=== PATIENT | male | born 1975 | race Caucasian/White ===

== ENCOUNTER → 2023-09-09 13:55 | Outpatient (POV) | payer MEDICAID, SELFPAY ==
[2023-09-09 14:10] VITALS: BP 130/78; PULSE 78; RESP 20; O2SAT 95; BMI 21.7
--- NOTE | 2023-09-09 14:37 | EXP.PAIN.OV ---
HPI Data of Consult Patient: known to practice within the last 3 years Consult date: 09/09/23 Requesting Physician: Kiki Ervin APRN Primary Care Provider: Adiel Wood Consult Narrative Reason for consult: Chronic low back pain, leg pain History of present illness: Mr. Phan is a 48 year old male patient who is reestablishing care. 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 Patient does state he has pain today a 7 out of 10. Patient denies any new injury or trauma. He states this is chronic and unrelated to any specific trauma or injury. He states this has been going on for years and describes it as a sharp shooting pain with occasional aching sensations and numbness and tingling. Patient does state that prior to having his pump placed in 2015 he has done conservative treatment including Tylenol and ibuprofen along with heat and ice and topicals with minimal relief. Patient had had multiple injections however none of these provided much improvement. Patient states that he did have his pump placed and has had much better relief. He does state that he still has daily aches and pains however he is content with his current dosage and feels like it does make him overall more functional on a day-to-day basis. Patient does have a flow [place] pump with Dilaudid 20 mg/mL and a daily dose of 3.432 mg/day. He denies any side effects from this medication. He does currently have his pump on his right lateral back area and states he will occasionally have fluid buildup around the device however it does not cause any worsening pain. Patient does also state that he does have chronic hip pain along the right side and does go to the chiropractor for this and even has cortisone injections for his bursitis. His Bryn has been reviewed and is appropriate. CC: Kiki Ervin APRN [facility] Disclaimer: The information contained in this section may have been updated after the patient was seen, as this information can be updated by other users. Medical History (Updated 09/09/23 @ 14:41 by Kiki Ervin APRN) Degenerative disc disease Depression Presence of intrathecal pump Family History (Updated 09/09/23 @ 14:34 by Kailee Riggs RN) Other No significant family history Social History (Updated 09/09/23 @ 14:34 by Kailee Riggs RN) Smoking Status: Current every day smoker alcohol intake: never current occupational status: other Travel in the last 8 weeks: None Review of Systems Review of Systems Review of systems:: pertinent systems reviewed and negative unless documented below Review of systems (narrative): Review of Systems: General: No recent weight changes, no fever, no sleep disturbances Respiratory: No cough, no shortness of air, no recurring pulmonary infections Cardiovascular/peripheral vascular: No chest pain, no palpitations, no edema, no shortness of breath Gastrointestinal: No new onset incontinence, normal bowel movements reported Genitourinary: No new onset incontinence Musculoskeletal: Low back pain, bilateral leg pain Psychiatric: [Normal mood/affect] Neurological: [Denies weakness in extremities], [denies balance issues] Meds Home Medications and Allergies New Prescriptions to Start Prescriptions: Objective Narrative: Physical Exam: General: Alert and oriented x3, no acute distress, pleasant and cooperative Lungs: Respirations even and unlabored, symmetrical chest expansion Eyes: PERRL Musculoskeletal: Flexion and extension of lumbar [spine] somewhat guarded secondary to pain, [antalgic gait noted] Neurological: Speech clear, no gross sensory deficit Skin: Area overall right lateral pump does not have seroma present, no pain with palpation Assessment and Plan *Assessment and plan (1) Chronic pain syndrome: Status: Acute Category: Medical Code(s): G89.4 - Chronic pain syndrome (2) Low back pain: Status: Acute Qualifiers: Chronicity: chronic Back pain laterality: bilateral Sciatica presence: without sciatica Qualified Code(s): M54.50 - Low back pain, unspecified; G89.29 - Other chronic pain Category: Medical Code(s): M54.50 - Low back pain, unspecified (3) Lumbar radiculopathy: Status: Acute Category: Medical Code(s): M54.16 - Radiculopathy, lumbar region Plan Patient continues to do well with his intrathecal pump. I have discussed with the patient that in future it may be something that we need to replace due to the age of the system. I have counseled the patient that we will follow-up with him regarding this at future visits. Patient will return to clinic in 6 months for reevaluation of symptoms and plan of care. Patient is not AIS at home refill client. Patient has been instructed to contact the clinic with any concerns before the next appointment. Dr. Angel has reviewed this note and agrees with this plan of care. This note was dictated using voice recognition software and make contain errors or omissions. -- It Is medically necessary for this patient to continue to have their intrathecal pump refilled at regular intervals. This patient had an intrathecal pain pump implanted after meeting criteria of chronic intractable pain for greater than 3 months and failing conservative treatments. Patient has committed and been compliant to the treatment plan and all planned follow up care. Since implantation of the intrathecal pain pump, the patient has had decreased pain and been more functional. Oral medications have been reduced including intake of oral opioids. Patient continues to do well with intrathecal therapy with decrease in pain symptoms and increase in functional status. Stopping intrathecal medications can lead to life threatening withdrawal, seizures, cardiac arrest, severe pain, and possible . Pumps that are not refilled at regular intervals can be damages and cause and need for replacement. We continually titrate dose and concentration to optimize pain relief and function. We are limited in concentration for certain drugs to safely deliver medications through the pump and stay within the recommendations from the Polyanalgesic Consensus Committee Guidelines. Depending on dose and concentration these pumps may need to be refilled sooner than 3 months as we titrate.
== END ==
LOC: SC.PAIN 13:58
PROVIDERS: PCP Physician Assistant; Visit Provider Nurse Practitioner Family
DX: G89.4 Chronic pain syndrome (principal); M54.50 Low back pain, unspecified; M54.16 Radiculopathy, lumbar region; Z97.8 Presence of other specified devices
CPT/HCPCS: 99202; G0463

== ENCOUNTER 2024-06-12 12:13 | Day surgery (SDC) | payer MEDICAID, SELFPAY ==
--- OUTSIDE RECORDS SUMMARY | 2024-06-12 12:17 | XMS_ITS | Clinical Summary ---
Author Organization Healthcare Address [address] [place] [address] Care Team Providers Care Picker/Puller Name Role Phone Dieter Kennedy MD Primary Care Provider [phone] Family History Medical History Relation Name Comments Hypertension Mother Relation Name Status Comments Mother Social History Tobacco Use Types Packs/Day Years Used Date Smoking Tobacco: Every Day Alcohol Use Standard Drinks/Week Comments No 0 (1 standard drink = 0.6 oz pur e alcohol) Sex and Gender Information Value Date Recorded Sex Assigned at Not on file Legal Sex Male 8:58 PM EDT Gender Identity Not on file Sexual Orientation Not on file Last Filed Vital Signs Vital Sign Reading Time Taken Comments Blood Pressure - - Pulse - - Temperature - - Respiratory Rate - - Oxygen Saturation - - Inhaled Oxygen Concentration - - Weight 88.6 kg (195 lb 4.2 oz) 04/23/2016 10:23 AM EDT Height 182.9 cm (6') 04/23/2016 10:23 AM EDT Body Mass Index 26.48 04/23/2016 10:23 AM EDT Plan of Treatment Not on file Care Teams Picker/Puller Relationship Specialty Start Date End Date Dieter Kennedy MD [address] [place] [address] PCP - General 12/02/20
--- OUTSIDE RECORDS SUMMARY | 2024-06-12 12:17 | XMS_ITS | Continuity of Care Document ---
Author Organization [place] - [place] [facility] Address [address] [place] [id number] Care Team Providers Care Paring Machine Operator Name Role Phone MARITZA NINO Primary Care Provider Assessment No assessment recorded. Plan of Treatment Reminders Order Date Submit Date Provider Last Modified By Organization Details Last Modified Time Details Appointments None recorded. Lab influenza virus A + B + SARS-CoV-2 (COVID19) Ag panel, rapid IA, upper respiratory specimen 2023 024 [email or web address] 40 [facility], [address] [place] [address], [id number], 4 16:44:42 Referral None recorded. Procedures None recorded. Surgeries None recorded. Imaging None recorded. Medication Orders prednisone 20 mg tablet 2023 024 [email or web address] [facility], [address] [place], [address], 4 15:30:08 ceftriaxone 1 gram solution for injection 2023 024 [email or web address] Not available 4 08:20:17 dexamethaso ne sodium phosphate 4 mg/mL injection solution 2023 024 [email or web address] Not available 4 08:20:18 Augmentin 500 mg-125 mg tablet 2023 024 [email or web address] 40 [facility], [address] [place], [address], 4 07:41:54 Patient TargetsNo targets recorded. Patient InstructionsNo instructions recorded. Reason for Referral None Reported. Results Created Date Observation Date Name Description Value Unit Range Abnormal Flag Note LastModifiedBy Organization Detail LastModifiedTime 04/01/20 24 04/01/2024 influ andrews virus A + B + SARS- CoV-2 (COVI D19) Ag panel , rapid IA, upper respi rator y speci men FLU A negati ve Not Available [address], [address], 04/01/2024 14:13:06 04/01/20 24 04/01/2024 influ andrews virus A + B + SARS- CoV-2 (COVI D19) Ag panel , rapid IA, upper respi rator y speci men FLU B negati ve Not Available [address], [address], 04/01/2024 14:13:06 04/01/20 24 04/01/2024 influ andrews virus A + B + SARS- CoV-2 (COVI D19) Ag panel , rapid IA, upper respi rator y speci men SARS COV + SARS OV 2 negati ve Not Available [address], [address], 04/01/2024 14:13:06 Result Notes None recorded. Problems Name Problem SNOMED Code Status Onset Date Resolution Date Notes Provider Name and Address Organization Details Recorded Time Cough 05933960 Active 2022 MELVA Pina - ELSY [facility] & Shakila 3 15:35:34 Acute maxillary sinusitis 43032703 Active 2022 SHERRI BANSAL [address] [place] [address],[address], [phone] [facility] MELVA - MOUNANT - [place] & [place] 3 16:46:41 Acute upper respiratory infection 31134617 Active 2022 SHERRI BANSAL [facility] [employer] [facility],[address] [place], [address], [place] - [place] - [place] & [place] 3 16:46:48 Mixed anxiety and depressive disorder 465282130 Active 2023 SHERRI BANSAL [facility] [employer] [facility],[address], [place], [address], [place] [facility] - [place] & [place] 4 15:54:11 Fatigue 74988436 Active 2023 SHERRI BANSAL [facility] [employer] [facility],[address], [place], [address], [place] - [facility] - [place] & [place] 4 15:40:32 Hypokalemia 86923242 Active 2023 SHERRI BANSAL [facility] [employer] [facility], [place], [address], [place] - [place] - [place] & [place] 4 07:37:22 Vitamin D deficiency 32813389 Active 2023 SHERRI BANSAL [facility] [employer] [facility],[address], [place], [address], [place] - [facility] - [place] & [place] 4 10:55:20 Colorectal cancer detected by DNA-based stool screening 951745807 Active 2023 SHERRI BANSAL [facility] [employer] [facility],[address], [place], [address], [place] - [facility] - [place] & [place] 4 15:14:03 Congestion of nasal sinus 52002712 Active 2023 Gali ivey, [place] - [facility] & [place] 4 14:13:23 Cervical lymphadenopath y 932412739 Active 2023 SHERRI BANSAL [facility] [employer] [facility], [place], [address], [place] [facility] - [place] & [place] 4 14:49:18 Problem Notes None recorded. Procedures Surgical History Date Name Laterality Status Provider Name and Address Organization Details Recorded Time Eye Surgery completed Anamaria Hemal FRYE [facility] & [place] 07/30/2022 16:36:44 Appendectomy completed [facility] MELVA [facility] & [place] 07/30/2022 16:36:51 Imaging Results None recorded. Procedure Notes None recorded. Medical Equipment None Reported. Allergies No known drug allergies Medications Name Sig Start Date Stop Date Status Note LastModified by Organization Details LastModified Time doxycycline hyclate 100 mg capsule TAKE 1 CAPSULE BY MOUTH 2 TIMES DAILY 08/28 completed Not Available Not Available Not Available Paxil 20 mg tablet Take 1 tablet every day by oral route. 10/08 completed Not Available Not Available Not Available prednisone 20 mg tablet TAKE 3 TABLETS BY MOUTH DAILY FOR 2 DAYS,2 TABLETS FOR 2 DAYS THEN 1 TABLET FOR 2 DAYS active Not Available Not Available No t Available potassium chloride ER 10 mEq tablet,exte nded release TAKE 1 TABLET BY MOUTH DAILY. active Not Available Not Available No t Available ceftriaxone 1 gram solution for injection Take 1 g by injection route for 1 day. 2023 active Not Available Not Available Not Avai lable ergocalcife rol (vitamin D2) 1,250 mcg (50,000 unit) capsule TAKE 1 CAPSULE BY MOUTH TWICE WEEKLY active Not Available Not Available No t Available dexamethaso ne sodium phosphate 4 mg/mL injection solution Inject 2 mL by intramusc ular route for 1 day. 2023 active Not Available Not Available Not Avai lable paroxetine 40 mg tablet TAKE 1 TABLET BY MOUTH DAILY. active Not Available Not Available No t Available Augmentin 500 mg-125 mg tablet Take 1 tablet every 12 hours by oral route. 2023 active Not Available Not Available Not Avai lable Sutab 1.479-0.188 -0.225 gram tablet Take as directed in Dr Garza's office 2023 active Not Available Not Available Not Avai lable Paxlovid 300 mg (150 mg x 2)-100 mg tablets in a dose pack TAKE 3 TABLETS BY MOUTH EACH MORNING AND EVENING FOR 5 DAYS. FOLLOW PACKET INSTRUCTI ONS START 03/19/2207/30 completed Not Available Not Available Not Available Vitals Date Recorded Body height Body mass index (BMI) Body weight Body temperature Oxygen saturation Oxygen saturation in Arterial blood by Pulse oximetry Heart rate Systolic blood pressure Diastolic blood pressure Provider Name and Address Organization Details Last Updated DateTime 4 182.88 cm 23.7 kg/m2 54907.6 6 g 98.6 [degF] 95 % 95 % 102 /min 104 mm[Hg] 60 mm[Hg] Gali Penaloza [facility] & [place] 14:11:38 Social History Question Answer Notes LastModified by Organizat ion Details LastModified Time Tobacco Smoking Status Current Every Day Smoker Anamaria [place], [place] Randy [facility] & [place] 07/30/2022 16:36:34 Do You Have An Advance Directive? No Information not available 08/28/2023 What Is Your Level Of Alcohol Consumption? None Information not available 08/28/2023 Are You Blind Or Do You Have Difficulty Seeing? Yes Information not available 08/28/2023 What Is Your Level Of Caffeine Consumption? Moderate [email or web address] Information not available 09/11/2023 What Was The Date Of Your Most Recent Tobacco Screening? 08/28/2023 Information not available 08/28/2023 Are You Passively Exposed To Smoke? Yes Information no t available 08/28/2023 Do You Or Have You Ever Used Smokeless Tobacco? Never Used Smokeless Tobacco Information not available 08/28/2023 How Much Tobacco Do You Smoke? 1 PPD [email or web address] Information not available 07/30/2022 Do You Feel Stressed (tense, Restless, Nervous, Or Anxious, Or Unable To Sleep At Night)? [id number] Information not available 08/28/2023 Do You Use Any Illicit Or Recreational Drugs? No Information not available 08/28/2023 How Many Years Have You Smoked Tobacco? 30 Information not available 08/28/2023 Sex: Unknown Functional Status Question Answer Note LastModified by Organization D etails LastModified Time What is your exercise level? Moderate Information not available 08/28/2023 Mental Status None recorded. Family History Relationship Description Onset Age of this Age Resolved Age Notes LastModified by Organization Details LastModified Time Mother Heart disease Not available 2023 15:24:43 Mother Dementia [email or web address] Not available 04/01/2024 13:53:00 Sister Malignant tumor of colon [email or web address] Not available 2023 13:53:00 Medical History Condition Response Arthritis Y Back Problems Y Acne Y Past Encounters Encounter ID Performer Location Encounter Start Date Encounter Closed Date Diagnosis/Indication Diagnosis SNOMED-CT Code Diagnosis ICD10 Code [id number] SHERRI BANSAL [facility] [address] [address] [address] 04/01/2024 13:51:14 04/01/2024 15:25:24 Congestion of nasal sinus 68408906 R09.81 Exposure t o SARS-CoV-2 694042107 Z20.822 Exposure t o Influenzavirus 041070021 Z20.828 Acute uppe r respiratory infection 78478882 J06.9 Cervical lymphadenopathy 802767138 R59.0 Health Concerns Section Related Observation LastModified by Organization Detai ls LastModified Time None Recorded Concern Status LastModified by Organization Details LastModified Time None Recorded Payers Encounter Date Sequence Insurance Name Policy Number Policy Arroyo Covered Member ID Arroyo Member ID Guarantor Name 04/01/2024 1 [employer] BY [employer] (MEDICAID REPLACEMENT - HMO) [id number] Que Phan [id number] Que Phan Notes Date Note Type Note Provider Name and Address Organization Details Recorded Time 04/01/2024 text/html patient presents to the office today for evaluation. She is experiencing upper respiratory congestion sore throat. Postnasal drainage. Headache. Low-grade fevers. Body aches. he has had exposure to both COVID and the flu. In addition to the symptoms he is also having face pain and pressure. He has a palpable lymph node in his cervical spine. SHERRI BANSAL [address], [place], [address], [place] - [facility] - [place] & [place] 04/02/2024 07:41:56
--- OUTSIDE RECORDS SUMMARY | 2024-06-12 12:17 | XMS_ITS | Clinical Summary ---
Author Organization [facility] Address [address] [place] [id number] Care Team Providers Care Inspector Process Name Role Phone Unavailable Primary Care Provider Unavailabl e Social History Tobacco Use Types Packs/Day Years Used Date Smoking Tobacco: Never Assessed Abuse Screen Answer Date Recorded Unsafe at Home or Work/School Not on file Feels Threatened by Someone? Not on file 05/2023 Does Anyone Keep You from Co ntacting Others or Doint Things Outside the Home? Not on file 05/01/2023 Physical Sign of Abuse Present Not on file 1 Housing Stability Answer Date Recorded Current Living Arrangements Not on file 04/21 Potentially Unsafe Housing Conditions Not on robyn e 05/01/2023 Family and Community Support Answer Jann e Recorded Help with Day-to-Day Activities Not on file 05/01/2023 Lonely or Isolated Not on file 05/01/2023 Employment Answer Date Recorded Do you want help finding or keeping work or a mary b? Not on file 05/01/2023 Disabilities Answer Date Recorded Concentrating, Remembering, or Making Decisions Difficulty Not on file 05/01/2023 Doing Errands Independently Difficulty Not on fi le 05/01/2023 Education Answer Date Recorded Help with school or training? Not on file Preferred Language Not on file 05/01/2023 Sex and Gender Information Value Date Recorded Sex Assigned at Not on file Legal Sex Male 12:17 PM EDT Gender Identity Not on file Sexual Orientation Not on file Last Filed Vital Signs Vital Sign Reading Time Taken Comments Blood Pressure 122/80 03/02/2014 1:31 PM EDT Pulse 80 03/02/2014 1:31 PM EDT Temperature - - Respiratory Rate 16 03/02/2014 1:31 PM EDT Oxygen Saturation - - Inhaled Oxygen Concentration - - Weight 80.7 kg (178 lb) 03/02/2014 1:31 PM EDT Height 182.9 cm (6') 03/02/2014 1:31 PM EDT Body Mass Index 24.14 03/02/2014 1:31 PM EDT Plan of Treatment Health Maintenance Due Date Last Done Comments ANNUAL PHYSICAL 1977 COLOGUARD 1977 COLON CANCER SCREENING 5 YEA R SIGMOIDOSCOPY 1977 COLONOSCOPY [address] S[address] COLONOGRAPHY 1977 FECAL OCCULT BLOOD TEST 1977 FIT Testing (1 year) 1977 HEPATITIS C SCREENING 1977 TDAP/TD VACCINES (1 - Tdap) 01/28/1996 INFLUENZA VACCINE 02/20/2024 COVID-19 Vaccine (2023-2 5 season) 2024 Pneumococcal Vaccine 0-64 Aged Out No longer eligible based on patient's age to complete this topic
--- OUTSIDE RECORDS SUMMARY | 2024-06-12 12:17 | XMS_ITS | Data Portability ---
Author Organization [place] - [facility] Address [address] [place] [address] Care Team Providers Care Machine Loader Name Role Phone MARITZA WOOD Primary Care Provider Assessment No assessment recorded. Plan of Treatment Reminders Order Date Submit Date Provider Last Modified By Organization Details Last Modified Time Details Appointments None recorded. Lab influenza virus A + B + SARS-CoV-2 (COVID19) Ag panel, rapid IA, upper respiratory specimen 2022 023 [email or web address] 40 [facility], [address] [place] [address], [phone], 3 16:47:24 noninvasive colorectal cancer DNA + occult blood screening, QL, stool 2023 024 [email or web address] [facility] (Cologuard Orders Only), [address], [address], [place], [address], 4 06:42:53 CMP, serum or plasma 2023 024 [facility] ([facility]), [address] [place], [address], 4 18:19:22 CBC w/ auto diff 2023 024 [facility] ([facility]), [address] [place], [address], 4 18:01:00 vitamin D, 25-hydroxy, total, serum [address] ([facility]), [address] , [place], [address], 4 06:42:53 TSH, serum or plasma [address] ([facility]), [address] [place] [address] , [place], [address], 4 06:42:53 influenza virus A + B + SARS-CoV-2 (COVID19) Ag panel, rapid IA, upper respiratory specimen 2023 024 [email or web address] 40 [facility], [address] [place] [address], [phone], 4 16:44:42 Referral gastroenter ologist referral - referred to Dr. Garza. Patient was given pre appointment paperwork to complete an mail in 2023 024 [facility] Maritza Garza MD, [address] [place] [address], [address], 4 08:19:51 Procedures None recorded. Surgeries None recorded. Imaging None recorded. Medication Orders prednisone 20 mg tablet 2022 023 [facility], [address] [place], [address], 3 16:59:37 dexamethaso ne sodium phosphate 4 mg/mL injection solution 2022 023 [email or web address], [address] [place], [address], 4 15:23:24 ceftriaxone 1 gram solution for injection 2022 023 [email or web address], [address] [place], [address], 4 15:23:24 doxycycline hyclate 100 mg capsule 2022 023 [facility], [address] [place], [address], 3 03:41:34 Paxil 20 mg tablet 2023 024 [email or web address] [facility], [address] [place], [address], 4 14:02:01 Paxil 40 mg tablet 2023 024 [email or web address] 40 [facility], [address] [place], [address], 4 07:50:25 prednisone 20 mg tablet 2023 024 [facility], [address] [place], [address], 4 15:30:08 ceftriaxone 1 gram solution for injection 2023 024 [email or web address] Not available 4 08:20:17 dexamethaso ne sodium phosphate 4 mg/mL injection solution 2023 024 [email or web address] Not available 4 08:20:18 Augmentin 500 mg-125 mg tablet 2023 024 [email or web address] 40 [facility], [address] [place], [address], 4 07:41:54 Patient TargetsNo targets recorded. Patient Instructions Encounter Date Encounter Id Patient Instructions Last Modified By Organization Details Last Modified Time 08/28/2023 [id number] discussed his anxiety and depression. We discussed triggering mechanisms. In addition to medications we also discussed possible counseling. He states he has a lot of things going on in his life right now and does not wish to do that. Total time [id number] was 20 minutes. [email or web address] Not available 09/11/2023 15:38:03 10/09/2023 [id number] discussing regarding Cologuard testing. We will refer him to Gastroenterology. He needs a colonoscopy. Continue with his Paxil. 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 Garza. Patient was given pre appointment paperwork to complete an mail in Referring Physician: Maritza Wood, [facility], Encounter Date: 10/09/2023 Results Created Date Observation Date Name Description Value Unit Range Abnormal Flag Note LastModifiedBy Organization Detail LastModifiedTime 07/30/19 23 07/30/2022 influ andrews virus A + B + SARS- CoV-2 (COVI D19) Ag panel , rapid IA, upper respi rator y speci men FLU A negati ve Not Available [address], [address], 07/30/2022 15:35:37 07/30/19 23 07/30/2022 influ andrews virus A + B + SARS- CoV-2 (COVI D19) Ag panel , rapid IA, upper respi rator y speci men FLU B negati ve Not Available [address], [address], 07/30/2022 15:35:37 07/30/19 23 07/30/2022 influ andrews virus A + B + SARS- CoV-2 (COVI D19) Ag panel , rapid IA, upper respi rator y speci men SARS COV + SARS OV 2 negati ve Not Available [address], [address], 07/30/2022 15:35:37 09/11/19 24 09/11/2023 CBC WITH AUTO DIFF WBC 6.1 10 4.5-11 .5 Not Available [facility] (Lab) [address] [place], [address], 09/11/2023 18:01:00 09/11/19 24 09/11/2023 CBC WITH AUTO DIFF RBC 5.37 10 4.60-6 .00 Not Available [facility] (Lab) [address] [place] [place], [address], 09/11/2023 18:01:00 09/11/19 24 09/11/2023 CBC WITH AUTO DIFF hemoglobin 15.3 g/dL 14.0-1 8.0 Not Available [facility] (Lab) [address] [place], [address], 09/11/2023 18:01:00 09/11/19 24 09/11/2023 CBC WITH AUTO DIFF hematocrit 46.0 % 40.0-5 4.0 Not Available [facility] (Lab) [address] [place], [address], 09/11/2023 18:01:00 09/11/19 24 09/11/2023 CBC WITH AUTO DIFF MCV 85.7 fL 80-100 Not Available [facility] (Lab) [address] [place], [address], 09/11/2023 18:01:00 09/11/19 24 09/11/2023 CBC WITH AUTO DIFF MCH 28.5 pg 26-32 Not Available [facility] (Lab) [address] [place], [address], 09/11/2023 18:01:00 09/11/19 24 09/11/2023 CBC WITH AUTO DIFF MCHC 33.3 g/dL 32-36 Not Available [facility] (Lab) [address] [place] [place], [address], 09/11/2023 18:01:00 09/11/19 24 09/11/2023 CBC WITH AUTO DIFF RDW 11.9 % 11.5-1 4.5 Not Available [facility] (Lab) [address] [place] [place], [address], 09/11/2023 18:01:00 09/11/19 24 09/11/2023 CBC WITH AUTO DIFF platelet count 232 10 150-45 0 Not Available [facility] (Lab) [address] [place], [address], 09/11/2023 18:01:00 09/11/19 24 09/11/2023 CBC WITH AUTO DIFF mean platelet volume 10.8 fL 6.8-10 .2 high Not Available [facility] (Lab) [address] [place], [address], 09/11/2023 18:01:00 09/11/19 24 09/11/2023 CBC WITH AUTO DIFF manual differential NOT INDICA CIERRA Not Available [facility] (Lab) [address] [place] [place], [address], 09/11/2023 18:01:00 09/11/19 24 09/11/2023 CBC WITH AUTO DIFF ne% 53.4 % 50-70 Not Available [facility] (Lab) [address] [place], [address], 09/11/2023 18:01:00 09/11/19 24 09/11/2023 CBC WITH AUTO DIFF lymphs 32.2 % 18-42 Not Available [facility] (Lab) [address] [place] [place], [address], 09/11/2023 18:01:00 09/11/19 24 09/11/2023 CBC WITH AUTO DIFF MO% 7.5 % 2-11 Not Available [facility] (Lab) [address] [place] [place], [address], 09/11/2023 18:01:00 09/11/19 24 09/11/2023 CBC WITH AUTO DIFF eo% 5.4 % 1-3 high Not Available [facility] (Lab) [address] [place] [place], [address], 09/11/2023 18:01:00 09/11/19 24 09/11/2023 CBC WITH AUTO DIFF ba% 1.5 % 0.0-2. 0 Not Available [facility] (Lab) [address] [place], [address], 09/11/2023 18:01:00 09/11/19 24 09/11/2023 CBC WITH AUTO DIFF neutrophils (absolute) 3.3 K/uL 2.0-6. 9 Not Available [facility] (Lab) [address] [place] [place], [address], 09/11/2023 18:01:00 09/11/19 24 09/11/2023 CBC WITH AUTO DIFF lymphocytes (absolute) 2.0 K/uL 0.6-3. 4 Not Available [facility] (Lab) [address] [facility] [place], [address], 09/11/2023 18:01:00 09/11/19 24 09/11/2023 CBC WITH AUTO DIFF monocytes (absolute) 0.5 K/uL 0.0-0. 9 Not Available [facility] (Lab) [address] [facility] [place], [address], 09/11/2023 18:01:00 09/11/19 24 09/11/2023 CBC WITH AUTO DIFF eosinophils (absolute) 0.3 K/uL 0.0-0. 7 Not Available [facility] (Lab) [address] [place] [place], [address], 09/11/2023 18:01:00 09/11/19 24 09/11/2023 CBC WITH AUTO DIFF basophils (absolute) 0.1 K/uL 0.0-0. 2 Not Available [facility] (Lab) [address] [place] [place], [address], 09/11/2023 18:01:00 09/11/19 24 09/11/2023 COMPR EHENS BALJINDER METAB OLIC PANEL sodium 139 mmol/ L 136-14 5 Not Available [facility] (Lab) [address] [facility] [place], [address], 09/11/2023 18:19:22 09/11/19 24 09/11/2023 COMPR EHENS BALJINDER METAB OLIC PANEL potassium 3.4 mmol/ L 3.5-5. 1 low Not Available [facility] (Lab) [address] [facility] [place], [address], 09/11/2023 18:19:22 09/11/19 24 09/11/2023 COMPR EHENS BALJINDER METAB OLIC PANEL chloride 101 mmol/ L 98.0-1 07.0 Not Available [facility] (Lab) [address] [place] [place], [address], 09/11/2023 18:19:22 09/11/19 24 09/11/2023 COMPR EHENS BALJINDER METAB OLIC PANEL total CO2 30 mmol/ L 21-32 Not Available [facility] (Lab) [address] [facility] [place], [address], 09/11/2023 18:19:22 09/11/19 24 09/11/2023 COMPR EHENS BALJINDER METAB OLIC PANEL anion gap 11.4 mmol/ L 5.0-15 .0 Not Available [facility] (Lab) [address] [facility] [place], [address], 09/11/2023 18:19:22 09/11/19 24 09/11/2023 COMPR EHENS BALJINDER METAB OLIC PANEL glucose 107 mg/dL 70-120 Not Available [facility] (Lab) [address] [facility] [place], [address], 09/11/2023 18:19:22 09/11/19 24 09/11/2023 COMPR EHENS BALJINDER METAB OLIC PANEL BUN 8 mg/dL 7-18 Not Available [facility] (Lab) [address] [facility] [place], [address], 09/11/2023 18:19:22 09/11/19 24 09/11/2023 COMPR EHENS BALJINDER METAB OLIC PANEL creatinine 0.9 mg/dL 0.8-1. 3 Not Available [facility] (Lab) [address] [place] [place], [address], 09/11/2023 18:19:22 09/11/19 24 09/11/2023 COMPR EHENS BALJINDER METAB OLIC PANEL BUN/creatini ne ratio 8.9 ratio 9-21 low Not Available [facility] (Lab) [address] [facility] [place], [address], 09/11/2023 18:19:22 09/11/19 24 09/11/2023 COMPR EHENS BALJINDER METAB OLIC PANEL estimated glom filtration rate >60 mL/mi n 60.0- Not Available [facility] (Lab) [address] [facility] [place], [address], 09/11/2023 18:19:22 09/11/19 24 09/11/2023 COMPR EHENS BALJINDER METAB OLIC PANEL calcium 9.0 mg/dL 8.6-9. 8 Not Available [facility] (Lab) [address] [place] [place], [address], 09/11/2023 18:19:22 09/11/19 24 09/11/2023 COMPR EHENS BALJINDER METAB OLIC PANEL bilirubin, total 0.3 mg/dL 0.2-1. 0 USE OF THIS ASSAY IS NOT RECOM IDRIS D FOR PATIE NTS UNDER GOING TREAT MENT WITH ELTRO MBOPA G DUE TO THE POTEN TIAL FOR FALSE LY ELEVA CIERRA RESUL TS. Not Available [facility] (Lab) [address] [place], [address], 09/11/2023 18:19:22 09/11/19 24 09/11/2023 COMPR EHENS BALJINDER METAB OLIC PANEL AST (SGOT) 14 IU/L 15-37 low Not Available [facility] (Lab) [address] [facility] [place], [address], 09/11/2023 18:19:22 09/11/19 24 09/11/2023 COMPR EHENS BALJINDER METAB OLIC PANEL ALT (SGPT) 13 IU/L 12-78 Not Available [facility] (Lab) [address] [place] [place], [address], 09/11/2023 18:19:22 09/11/19 24 09/11/2023 COMPR EHENS BALJINDER METAB OLIC PANEL alk phos 101 IU/L 46-116 Not Available [facility] (Lab) [address] [facility] [place], [address], 09/11/2023 18:19:22 09/11/19 24 09/11/2023 COMPR EHENS BALJINDER METAB OLIC PANEL total protein 6.9 g/dL 6.4-8. 2 Not Available [facility] (Lab) [address] [place] [place], [address], 09/11/2023 18:19:22 09/11/19 24 09/11/2023 COMPR EHENS BALJINDER METAB OLIC PANEL albumin 3.6 g/dL 3.4-5. 0 Not Available [facility] (Lab) [address] [place] [place], [address], 09/11/2023 18:19:22 09/11/19 24 09/11/2023 COMPR EHENS BALJINDER METAB OLIC PANEL globulin 3.3 g/dL 1.3-3. 5 Not Available [facility] (Lab) [address] [place], [address], 09/11/2023 18:19:22 09/11/19 24 09/11/2023 COMPR EHENS BALJINDER METAB OLIC PANEL alb/glob ratio 1.1 ratio 1.0-3. 9 Not Available [facility] (Lab) [address] [place] [place], [address], 09/11/2023 18:19:22 09/11/19 24 09/11/2023 COMPR EHENS BALJINDER METAB OLIC PANEL osmolality, calculated 276 mOsm/ kg 272-29 5 Not Available [facility] (Lab) [address] [place] [address] [place], [address], 09/11/2023 18:19:22 09/11/19 24 09/11/2023 TSH TSH 3.57 uIU/m L 0.3600 -3.740 0 Not Available [facility] (Lab) [address] [place] [address] [place], [address], 09/11/2023 18:20:25 09/11/19 24 09/13/2023 VITAM IN D, 25-HY DROXY vitamin D, 25-hydroxy 18.7 NG/mL 30.0-1 00.0 low Vitam in D defic iency has been defin ed by the Insti tute of Medic ine and an Endoc rine Socie ty pract ice guide line as a level of serum 25-OH vitam in D less than 20 ng/mL (1,2) . The Endoc rine Socie ty went on to furth er defin e vitam in D insuf ficie ncy as a level betwe en 21 and 29 ng/mL (2). 1. IOM (Inst itute of Medic ine). 2009. Dieta ry refer ence intak es for calci um and D. Rosa Maria torres [place]: [facility] . 2. Jannette dutton MF, Oliver buenrostro [place], Carlos off-F brigido i HALEY, et al. Evalu ation , treat ment, and preve ntion of vitam in D defic iency : an Endoc rine Socie ty clini reynaldo pract ice guide line. JCEM. 2010; 96(7) :1911 -30. Perfo rmed at: CB - [facility] [address], [place] [address] 1261 Lab Direc tor: Hermelindo [email or web address] PhD, Phone : [phone] Not Available [facility] (Lab) [address] [place] [address] [place], [address], 09/13/2023 08:21:04 04/01/20 24 04/01/2024 influ andrews virus A + B + SARS- CoV-2 (COVI D19) Ag panel , rapid IA, upper respi rator y speci men FLU A negati ve Not Available [address], [address], 04/01/2024 14:13:06 04/01/20 24 04/01/2024 influ andrews virus A + B + SARS- CoV-2 (COVI D19) Ag panel , rapid IA, upper respi rator y speci men FLU B negati ve Not Available [address], [address], 04/01/2024 14:13:06 04/01/20 24 04/01/2024 influ andrews virus A + B + SARS- CoV-2 (COVI D19) Ag panel , rapid IA, upper respi rator y speci men SARS COV + SARS OV 2 negati ve Not Available [address], [address], 04/01/2024 14:13:06 Result Notes None recorded. Problems Name Problem SNOMED Code Status Onset Date Resolution Date Notes Provider Name and Address Organization Details Recorded Time Cough 82352006 Active 2022 Jomar ivey [facility] & [place] 3 15:35:34 Acute maxillary sinusitis 56887317 Active 2022 SHERRI BANSAL [employer] [facility],Angela te [address] [place] [address], [address] [place] [address] & [place] 3 16:46:41 Acute upper respiratory infection 93622776 Active [address] [facility],Angela [address], [address], [place] - [facility] - [place] & [place] 3 16:46:48 Mixed anxiety and depressive disorder 589420190 Active 2023 SHERRI BANSAL [address] [place] [address],Angela te [address] [place] [address], [address], [place] - [facility] - [place] & [place] 4 15:54:11 Fatigue 07582751 Active 2023 SHERRI BANSAL [address] [place] [address],[address], [address], [place] - [facility] - [place] & [place] 4 15:40:32 Hypokalemia 44003297 Active 2023 SHERRI BANSAL [address] [place] [address],[facility] te [address] [place] [address], [address], [place] - [facility] - [place] & [place] 4 07:37:22 Vitamin D deficiency 28666032 Active 2023 SHERRI BANSAL [address] [place] [address],[address], [address], [place] - [facility] - [place] & [place] 4 10:55:20 Colorectal cancer detected by DNA-based stool screening 841859214 Active 2023 SHERRI BANSAL [address] [place] [address],[address], [address], [place] - [facility] - [place] & [place] 4 15:14:03 Congestion of nasal sinus 25247685 Active 2023 Gali Christiansenayo null, [place] - [facility] - [place] & [place] 4 14:13:23 Cervical lymphadenopath y 857550860 Active 2023 SHERRI BANSAL [address] [place] [address],Ang[address], [address], [place] - [facility] - [place] & [place] 4 14:49:18 Problem Notes None recorded. Procedures Surgical History Date Name Laterality Status Provider Name and Address Organization Details Recorded Time Eye Surgery completed Anamaria FRYE - MOUNANT [facility] & [place] 07/30/2022 16:36:44 Appendectomy completed Anamaria CHIN [facility] & [place] 07/30/2022 16:36:51 Imaging Results None recorded. Procedure [...] active Not Available Not Available Not [facility] Sutab 1.479-0.188 -0.225 gram tablet Take as directed in Dr Garza's office 2023 active Not Available Not Available Not [facility] Paxlovid 300 mg (150 mg x 2)-100 mg tablets in a dose pack TAKE 3 TABLETS BY MOUTH EACH MORNING AND EVENING FOR 5 DAYS. FOLLOW PACKET INSTRUCTI ONS START 03/19/2207/30 completed Not Available Not Available Not Available Vitals Date Recorded Body temperature Oxygen saturation Oxygen saturation in Arterial blood by Pulse oximetry Heart rate Systolic blood pressure Diastolic blood pressure Provider Name and Address Organization Details Last Updated DateTime 3 96.8 [degF] 97 % 97 % 71 /min 122 mm[Hg] 70 mm[Hg] Anamaria CHIN [facility] & [place] 3 16:35:13 Date Recorded Body height Body mass index (BMI) Body weight Body temperature Oxygen saturation Oxygen saturation in Arterial blood by Pulse oximetry Heart rate Systolic blood pressure Diastolic blood pressure Provider Name and Address Organization Details Last Updated DateTime 4 182.88 cm 23.7 kg/m2 17240.6 6 g 97.4 [degF] 98 % 98 % 80 /min 112 mm[Hg] 70 mm[Hg] Gali CHIN [facility] & [place] 4 15:23:06 Date Recorded Body height Body temperature Oxygen saturation Oxygen saturation in Arterial blood by Pulse oximetry Heart rate Systolic blood pressure Diastolic blood pressure Provider Name and Address Organization Details Last Updated DateTime 4 182.88 cm 97.3 [degF] 97 % 97 % 86 /min 122 mm[Hg] 74 mm[Hg] Anamaria CHIN [facility] & [place] 4 15:17:36 Date Recorded Body height Body mass index (BMI) Body weight Body temperature Oxygen saturation Oxygen saturation in Arterial blood by Pulse oximetry Heart rate Systolic blood pressure Diastolic blood pressure Provider Name and Address Organization Details Last Updated DateTime 4 182.88 cm 23.7 kg/m2 75870.6 6 g 97.5 [degF] 95 % 95 % 97 /min 118 mm[Hg] 72 mm[Hg] Sandra Felix MELVA CHIN [facility] & [place] 4 14:01:19 Date Recorded Body height Body mass index (BMI) Body weight Body temperature Oxygen saturation Oxygen saturation in Arterial blood by Pulse oximetry Heart rate Systolic blood pressure Diastolic blood pressure Provider Name and Address Organization Details Last Updated DateTime 4 182.88 cm 23.7 kg/m2 75910.6 6 g 98.6 [degF] 95 % 95 % 102 /min 104 mm[Hg] 60 mm[Hg] Gali Padilla LPNT [facility] & [place] 14:11:38 Social History Question Answer Notes LastModified by Organizat ion Details LastModified Time Tobacco Smoking Status Current Every Day Smoker Anamaria ivey, [place] - [facility] - [place] & [place] 07/30/2022 16:36:34 Do You Have An Advance [...] Anxious, Or Unable To Sleep At Night)? [id number] Information not available 08/28/2023 Do You Use [...] Diagnosis/Indication Diagnosis SNOMED-CT Code Diagnosis ICD10 Code [id number] MARITZA TRUNG, [place] [address] [address] [place] [address] 07/30/2022 15:48:17 07/30/2022 16:56:49 Cough 46316668 R05.9 Acute maxi llary sinusitis 81660659 J01.00 Acute uppe r respiratory infection 98452617 J06.9 [id number] SHERRI BANSAL [address] [address] [place] [address] 08/28/2023 15:11:54 08/28/2023 15:55:12 Mixed anxiety and depressive disorder 106085767 F41.8 [id number] SHERRI BANSAL [address] [address] 09/11/2023 15:10:11 09/11/2023 15:48:50 Mixed anxiety and depressive disorder 794291754 F41.8 History of polyp of colon 996315542 Z86.010 Fatigue 14516426 R53.83 [id number] SHERRI BANSAL [address] [address] [place] [address] 10/09/2023 13:54:23 10/09/2023 15:03:54 History of polyp of colon 399595284 Z86.010 Colorectal cancer detected by DNA-based stool screening 821480179 R19.5 Fatigue 49424874 R53.83 Hypokalemia 03394776 E87 .6 Mixed anxi ety and depressive disorder 588115076 F41.8 Vitamin D deficiency 347 [address]39 E55.9 [id number] SHERRI BANSAL [address] [address] [place] [address] 04/01/2024 13:51:14 04/01/2024 15:25:24 Congestion of nasal sinus 79549841 R09.81 Exposure t o SARS-CoV-2 933746343 Z20.822 Exposure t o Influenzavirus 035178203 Z20.828 Acute uppe r respiratory infection 93475207 J06.9 Cervical lymphadenopathy 404505119 R59.0 Health Concerns Section Related Observation LastModified by Organization Detai ls LastModified Time None Recorded Concern Status LastModified by Organization Details LastModified Time None Recorded Advance Directives Directive N: Payers Encounter Date Sequence Insurance Name Policy Number Policy Arroyo Covered Member ID Arroyo Member ID Guarantor Name 07/30/2022 1 [employer]SP[employer] BY [facility] (MEDICAID REPLACEMENT - HMO) [id number] Que [place] Sylvester [id number] Que O Sylvester 07/30/2022 1 [facility] [id number] Que [place] Sylvester [id number] Que O Sylvester 08/28/2023 1 [employer] BY [facility] (MEDICAID REPLACEMENT - HMO) [id number] Que O Sylvester [id number] Que King Sylvester 09/11/2023 1 [employer] [facility] (MEDICAID REPLACEMENT - HMO) [id number] Que King Sylvester [id number] Que O Sylvester 10/09/2023 1 [employer] [facility] (MEDICAID REPLACEMENT - HMO) [id number] Que O Sylvester [id number] Que O Sylvester 04/01/2024 1 [employer] [facility] (MEDICAID REPLACEMENT - HMO) [id number] Que King Sylvester [id number] Que Herlley Notes Date Note Type Note Provider Name and Address Organization Details Recorded Time 07/30/2022 text/html patient presents to the office today for evaluation. he is experiencing upper respiratory congestion sore throat. Postnasal drainage. Headache. Low-grade fevers. Body aches. face pain and pressure. Right ear pain. Onset of this was 2 days ago. He has a history of chronic sinusitis as well. SHERRI BANSAL [address], [place], [address], [facility] - [place] & [place] 07/31/2022 08:08:53 08/28/2023 text/html Patient has been experiencing anxiety and depression. He has also had issues with agitation. Years ago he used to be on medication to help him keep things under control but he has not been on something for quite some time. He has no suicidal thoughts or tendencies. He does not sleep very well at night. No headaches or dizziness. Has history of low vitamin-D levels. Currently he is taking vitamin-D 43808 units once a week. No side effects to his medications. At today's visit he does not need refills. SHERRI BANSAL [address] [employer] [address] [facility],[address], [place], [address], [facility] 09/11/2023 15:39:49 09/11/2023 text/html Patient presents today to follow-up on his anxiety and depression. Last office visit start him on Paxil 20 mg daily. It has helped him sleep a little bit better. Has had a decrease in his agitation. He still has some anxiety and depression symptoms he states they are not as severe. Has history of low vitamin-D levels. Is taking vitamin-D once a week. No side effects to the medicines. He has not had laboratory evaluation in quite some time. He does have history colon polyps. It has been at least 8 almost 9 year since his last colonoscopy. He has not experiencing any bowel problems but he does have a sister with colon cancer. SHERRI BANSAL [address], [place], [address], [facility] [place] 09/12/2023 07:50:28 10/09/2023 text/html patient presents the office today to follow-up on episodes of constipation. Had a Cologuard test completed and it returned positive. He has had some weight loss. Denies nausea vomiting or diarrhea. He does have history of colon polyps and there is a family history of colon cancer. Does have a history of mixed anxiety and depression. Started on Paxil. Initially on 20 mg and then increased to 40 mg. He states it may be helping some but not a lot. At this point he has not interested in trying anything in addition to it. Does have history of vitamin-D deficiency. Takes 10876 units of vitamin-D twice a week. This was increased from weekly after his last lab work was completed. No side effects to his medication. He does have a history of low potassium levels. He is currently taking 10 mEq of potassium daily. Is tolerating this well. No side effects to the medicines. His last lab work was completed on 09/11/2023. SHERRI BANSAL [address] [facility],[address], [place], [address], [facility] [place] 10/11/2023 07:56:30 04/01/2024 text/html patient presents to the office today for evaluation. She is experiencing upper respiratory congestion sore throat. Postnasal drainage. Headache. Low-grade fevers. Body aches. he has had exposure to both COVID and the flu. In addition to the symptoms he is also having face pain and pressure. He has a palpable lymph node in his cervical spine. SHERRI BANSAL [address] [facility],[address], [place], [address], [place] [facility] [place] 04/02/2024 07:41:56
--- OUTSIDE RECORDS SUMMARY | 2024-06-12 12:17 | XMS_ITS | Encounter Summary ---
Author Organization Healthcare Address [address] [place] [address] Care Team Providers Care Agricultural Specialist Name Role Phone Unavailable Primary Care Provider Unavailabl e Encounter Details Date Type Department Care Team (Late st Contact Info) Description 04/23/2016 [facility] AEHR Vitals Encounter [facility] OUTPATIENT CONVERSIONS [address] [place] [address] ProviderMerritt MD [address] [place] [address] Social History Tobacco Use Types Packs/Day Years Used Date Smoking Tobacco: Never Assessed Sex and Gender Information Value Date Recorded Sex Assigned at Not on file Legal Sex Male 8:58 PM EDT Gender Identity Not on file Sexual Orientation Not on file documented as of this encounter Last Filed Vital Signs Vital Sign Reading Time Taken Comments Blood Pressure - - Pulse - - Temperature - - Respiratory Rate - - Oxygen Saturation - - Inhaled Oxygen Concentration - - Weight 88.6 kg (195 lb 4.2 oz) 04/23/2016 10:23 AM EDT Height 182.9 cm (6') 04/23/2016 10:23 AM EDT Body Mass Index 26.48 04/23/2016 10:23 AM EDT documented in this encounter Plan of Treatment Not on file documented as of this encounter Visit Diagnoses Not on filedocumented in this encounter
--- OUTSIDE RECORDS SUMMARY | 2024-06-12 12:17 | XMS_ITS | Encounter Summary ---
Author Organization [facility] ystem Address [address] [place] [address] Care Team Providers Care Educational Diagnostician Name Role Phone Unavailable Primary Care Provider Unavailabl e Encounter Details Date Type Department Care Team (Late st Contact Info) Description 03/02/2014 Office Visit Converted [facility] [address] [address] John Zhou MD [address] [place] [address] Social History Tobacco Use Types Packs/Day Years [...] Mass Index 24.14 03/02/2014 1:31 PM EDT documented in this encounter Progress Notes * John Zhou MD - 03/02/2014 1:30 PM EDT PCP/Referring Physician Requesting Provider: Dr. Avalos Primary Care Provider: Dr. Kennedy Chief Complaint 1. Leg Pain 2. Numbness (Hypesthesia) 3. Weakness History of Present Illness Weakness: BARTOLO PHAN presents with complaints of weakness. Associated symptoms include myalgias, arthralgias, muscle spasms and gait disturbance, but no fatigue, no reduced endurance, no muscle atrophy, no dizziness and no vertigo. Numbness (Hypesthesia): BARTOLO PHAN presents with complaints of numbness years ago. He is currently experiencing numbness. Leg Pain: BARTOLO PHAN presents with complaints of gradual onset of constant episodes of severe right posterior upper leg pain, described as sharp and throbbing, radiating to the right hip and right thigh. Episodes started about 4 years ago. He is currently experiencing leg pain. Symptoms are worsening. Review of Systems [facility] Complete ROS: Constitutional: negative. Eyes: negative. ENT: negative. Cardiovascular: negative. Respiratory: negative. Gastrointestinal: negative. Genitourinary (Male): negative. Genitourinary (Female): negative. Integumentary: dry skin. Neurological: numbness and limb weakness. Psychiatric: anxiety. Endocrine: negative. Hematologic/Lymphatic: negative. Family History 1. Family history of cardiac disorder (V17.49) 2. Family history of diabetes mellitus (V18.0) 3. Family history of Parkinson's disease (V17.2) 4. Family history of cardiac disorder (V17.49) 5. Family history of diabetes mellitus (V18.0) 6. Family history of Parkinson's disease (V17.2) 7. Family history of dementia (V17.2) Social History 1. Never smoker 2. Denied: History of Occasional alcohol use 3. Single Current Meds Medication Name Instruction Hydrocodone-Acetaminophen 10-500 MG TABS TAKE 1 TABLET 3 times daily Tylenol TABS Allergies 1. No Known Drug Allergies Vitals Signs [Data Includes: Current Encounter] Recorded by : Madina Carrero at [id number] 01:31PM Heart Rate: 80 Respiration: 16 Systolic: 122 Diastolic: 80 Height: 6 ft Weight: 178 lb BMI Calculated: 24.14 BSA Calculated: 2.03 Physical Exam Constitutional General appearance: No acute distress, well appearing and well nourished. Head and Face Head and face: Normal, atraumatic. Eyes Ophthalmoscopic examination: Normal appearing optic disc and posterior segments. Neck Neck and thyroid: Normal, supple, trachea midline, no masses or thyromegaly. Cardiovascular Auscultation of heart: Normal rate and rhythm, normal S1 and S2, no murmurs. Carotid pulses: Normal, 2+ bilaterally. Peripheral vascular exam: Normal pulses throughout, no tenderness, erythema or swelling. Musculoskeletal Gait and station: Normal gait, stance and balance. Muscle strength: Normal strength throughout arms and legs. Muscle tone: No atrophy, abnormal movements, flaccidity, cogwheeling or spasticity. Neurologic Orientation to person, place, and time: Normal. Recent and remote memory: Demonstrates normal memory. Attention span and concentration: Normal thought process and attention span. Language: Names objects, able to repeat phrases and speaks spontaneously. Fund of knowledge: Normal vocabulary with appropriate knowledge of current events and past history. 1st cranial nerve: Normal. Optic nerve: Normal. 3rd, 4th, and 6th cranial nerves: Normal. 5th cranial nerve: Normal. 7th cranial nerve: Normal. 8th cranial nerve: Normal. 9th cranial nerve: Normal. 10th cranial nerve: Normal. 11th cranial nerve: Normal. 12th cranial nerve: Normal. Sensation: Normal. Reflexes: Normal in arms and legs. Coordination: Normal. Cortical function: Normal. Judgment and insight: Normal. Mood and affect: Normal. Radicular Testing: Abormal. Ttp over right gluteus. Procedure With patient consent, 125 mg of Methylprednisolone and 2 cc of 2% Lidocaine were injected at point of tenderness right gluteus. Patient tolerated procedure well. Assessment 1. Causalgia of lower limb (355.71) ?? Assessed By: John Zhou (Neurology); Last Assessed: 04 Mar 2014 2. Pain, hip (719.45) ?? Assessed By: John Zhou (Neurology); Last Assessed: 04 Mar 2014 3. Sciatica (724.3) ?? Assessed By: John Zhou (Neurology); Last Assessed: 04 Mar 2014 4. Radicular pain of lower extremity (724.4) ?? Assessed By: John Zhou (Neurology); Last Assessed: 04 Mar 2014 5. Tear of right gluteus minimus tendon (843.8) ?? Assessed By: John Zhou (Neurology); Last Assessed: 04 Mar 2014 6. Myalgia and myositis (729.1) ?? Assessed By: John Zhou (Neurology); Last Assessed: 04 Mar 2014 Plan 1. EMG 2 extremity +/- Paraspinous - 58635 Status: Hold For - Scheduling Requested for: [id number] (ies) to be included? : b/l LE End of Encounter Meds Medication Name Instruction Hydrocodone-Acetaminophen 10-500 MG TABS TAKE 1 TABLET 3 times daily Tylenol TABS Discussion/Summary Discussion Summary: Mr. Phan is a 39 y/o M referred to Neurology clinic for evaluation. He has had right buttock, hip, and leg pain for about 4 years. This is a sharp, severe pain worse with prolonged sitting or standing. It has worsened recently. He has had several treatments including lumbar ZAHRAA, pain medications,nerve block w/out much benefit. He had MRI recently which showed gluteal tear. This was not felt shelbi nable to surgical intervention. He has a nonfocal neurologic exam. EMG/NCS bilateral lower extremities is normal. He has gluteal muscle tenderness on exam. Trigger point injection administered in clinic today. His pain management physician recommended local Botox injection. He was given informationon physicians who may perform this procedure. He was in understanding and all questions were addressed. The patient was counseled regarding diagnostic results, instructions for management, prognosis, patient and family education and impressions. Signatures Electronically signed by : John Zhou M.D.; Mar 04 2014 2:14PM EST (Author) documented in this encounter Miscellaneous Notes * Letter - John Zhou MD - 03/02/2014 1:30 PM EDT Chief Complaint 1. Leg Pain 2. Numbness (Hypesthesia) 3. Weakness History of Present Illness Weakness: BARTOLO PHAN presents with complaints of weakness. Associated symptoms include myalgias, arthralgias, muscle spasms and gait disturbance, but no fatigue, no reduced endurance, no muscle atrophy, no dizziness and no vertigo. Numbness (Hypesthesia): BARTOLO PHAN presents with complaints of numbness years ago. He is currently experiencing numbness. Leg Pain: BARTOLO PHAN presents with complaints of gradual onset of constant episodes of severe right posterior upper leg pain, described as sharp and throbbing, radiating to the right hip and right thigh. Episodes started about 4 years ago. He is currently experiencing leg pain. Symptoms are worsening. Review of Systems Constitutional: negative. Eyes: negative. ENT: negative. Cardiovascular: negative. Respiratory: negative. Gastrointestinal: negative. Genitourinary (Male): negative. Genitourinary (Female): negative. Integumentary: dry skin. Neurological: numbness and limb weakness. Psychiatric: anxiety. Endocrine: negative. Hematologic/Lymphatic: negative. Family History ?? Family history of cardiac disorder (V17.49) ?? Family history of diabetes mellitus (V18.0) ?? Family history of Parkinson's disease (V17.2) ?? Family history of cardiac disorder (V17.49) ?? Family history of diabetes mellitus (V18.0) ?? Family history of Parkinson's disease (V17.2) ?? Family history of dementia (V17.2) Social History ?? Never smoker ?? Denied: History of Occasional alcohol use ?? Single Current Meds Medication Name Instruction Hydrocodone-Acetaminophen 10-500 MG TABS TAKE 1 TABLET 3 times daily Tylenol TABS Allergies 1. No Known Drug Allergies Vitals Signs [Data Includes: Current Encounter] Heart Rate: 80 Respiration: 16 Systolic: 122 Diastolic: 80 Height: 6 ft Weight: 178 lb BMI Calculated: 24.14 BSA Calculated: 2.03 Physical Exam Constitutional General appearance: No acute distress, well appearing and well nourished. Head and Face Head and face: Normal, atraumatic. Eyes Ophthalmoscopic examination: Normal appearing optic disc and posterior segments. Neck Neck and thyroid: Normal, supple, trachea midline, no masses or thyromegaly. Cardiovascular Auscultation of heart: Normal rate and rhythm, normal S1 and S2, no murmurs. Carotid pulses: Normal, 2+ bilaterally. Peripheral vascular exam: Normal pulses throughout, no tenderness, erythema or swelling. Musculoskeletal Gait and station: Normal gait, stance and balance. Muscle strength: Normal strength throughout arms and legs. Muscle tone: No atrophy, abnormal movements, flaccidity, cogwheeling or spasticity. Neurologic Orientation to person, place, and time: Normal. Recent and remote memory: Demonstrates normal memory. Attention span and concentration: Normal thought process and attention span. Language: Names objects, able to repeat phrases and speaks spontaneously. Fund of knowledge: Normal vocabulary with appropriate knowledge of current events and past history. 1st cranial nerve: Normal. Optic nerve: Normal. 3rd, 4th, and 6th cranial nerves: Normal. 5th cranial nerve: Normal. 7th cranial nerve: Normal. 8th cranial nerve: Normal. 9th cranial nerve: Normal. 10th cranial nerve: Normal. 11th cranial nerve: Normal. 12th cranial nerve: Normal. Sensation: Normal. Reflexes: Normal in arms and legs. Coordination: Normal. Cortical function: Normal. Judgment and insight: Normal. Mood and affect: Normal. Radicular Testing: Abormal. Ttp over right gluteus. Procedure With patient consent, 125 mg of Methylprednisolone and 2 cc of 2% Lidocaine were injected at point of tenderness right gluteus. Patient tolerated procedure well. Assessment 1. Causalgia of lower limb (355.71) ?? Assessed By: John Zhou (Neurology); Last Assessed: 04 Mar 2014 2. Pain, hip (719.45) ?? Assessed By: John Zhou (Neurology); Last Assessed: 04 Mar 2014 3. Sciatica (724.3) ?? Assessed By: John Zhou (Neurology); Last Assessed: 04 Mar 2014 4. Radicular pain of lower extremity (724.4) ?? Assessed By: John Zhou (Neurology); Last Assessed: 04 Mar 2014 5. Tear of right gluteus minimus tendon (843.8) ?? Assessed By: John Zhou (Neurology); Last Assessed: 04 Mar 2014 6. Myalgia and myositis (729.1) ?? Assessed By: John Zhou (Neurology); Last Assessed: 04 Mar 2014 Plan Radicular pain of lower extremity, Sciatica ?? EMG 2 extremity +/- Paraspinous - 39659 Status: Hold For - Scheduling Requested for: [id number] (s) to be included? : b/l LE End of Encounter Meds Medication Name Instruction Hydrocodone-Acetaminophen 10-500 MG TABS TAKE 1 TABLET 3 times daily Tylenol TABS Discussion/Summary Mr. hPan is a 39 y/o M referred to Neurology clinic for evaluation. He has had right buttock, hip, and leg pain for about 4 years. This is a sharp, severe pain worse with prolonged sitting or standing. It has worsened recently. He has had several treatments including lumbar ZAHRAA, pain medications,nerve block w/out much benefit. He had MRI recently which showed gluteal tear. This was not felt shelbi nable to surgical intervention. He has a nonfocal neurologic exam. EMG/NCS bilateral lower extremities is normal. He has gluteal muscle tenderness on exam. Trigger point injection administered in clinic today. His pain management physician recommended local Botox injection. He was given informationon physicians who may perform this procedure. He was in understanding and all questions were addressed. The patient was counseled regarding diagnostic results, instructions for management, prognosis, patient and family education and impressions. Thank you very much for allowing me to participate in the care of this patient. If you have any questions, please do not hesitate to contact me. PCP/Referring Physician _PCP Requesting Physician: Requesting Provider: Dr. Avalos Primary Care Provider: Dr. Kennedy Signatures Electronically signed by : John Zhou M.D.; Mar 04 2014 2:14PM EST (Author) documented in this encounter Plan of Treatment Not on file documented as of this encounter Visit Diagnoses Not on filedocumented in this encounter
--- OUTSIDE RECORDS SUMMARY | 2024-06-12 12:17 | XMS_ITS | Encounter Summary ---
Author Organization Healthcare Address [facility] [place] [address] Care Team Providers Care Pain Management Specialist Name Role Phone Unavailable Primary Care Provider Unavailabl e Encounter Details Date Type Department Care Team (Late st Contact Info) Description 11/09/2014 Legacy AEHR Vitals Encounter [facility] OUTPATIENT CONVERSIONS [address] [place] [address] ProviderMerritt MD [address] [place] [address] Social History Tobacco Use Types Packs/Day [...] - Inhaled Oxygen Concentration - - Weight 88 kg (194 lb 0.1 oz) 11/09/2014 9:15 AM EDT Height 182.9 cm (6') 11/09/2014 9:15 AM EDT Body Mass Index 26.31 11/09/2014 9:15 AM EDT documented in this encounter Plan of Treatment Not on file documented as of this encounter Visit Diagnoses Not on filedocumented in this encounter
[2024-06-12 13:05] VITALS: BP 116/79; BP 128/76; PULSE 82; PULSE 84; PULSE 96; RESP 18; TEMP 36.6; O2SAT 100; O2SAT 99; BMI 24.4
--- NOTE | 2024-06-12 13:29 | P.PCN_ITS ---
Procedure Date: 06/12/24 Time: 13:29 Anesthesiologist:: Kiki Ervin APRN Complications:: None Pre-procedure Diagnosis:: Degenerative disc disease of lumbar spine with lumbar radiculopathy symptoms Post-procedure Diagnosis:: Same Indications for Procedure:: Patient is a pleasant 49-year-old male who presents today for intrathecal refill and reprogram. Today he rates his pain a 6 out of 10. He denies any new trauma or injury. He does state overall he is doing fine. He does state with the change of weather typically his pain will go up and he is requesting a increase of his intrathecal pump. He is currently managed with Dilaudid 20 mg/mL with a daily dose of 3.775 mg/day. He denies any side effects from this medication. His Bryn has been reviewed and is appropriate. Physical Exam: General: Alert and oriented x3, no acute distress, pleasant and cooperative Lungs: Respirations even and unlabored, symmetrical chest expansion Eyes: PERRL Musculoskeletal: Flexion and extension of lumbar [spine] somewhat guarded secondary to pain, [antalgic gait noted] Neurological: Speech clear, no gross sensory deficit Procedure Details:: Informed consent was obtained and the risk and benefits of the procedure were explained to the patient. The patient was taken to the procedure room where noninvasive monitoring was placed including noninvasive blood pressure cuff and pulse oximeter. Patient's pump was interrogated. The area over the pump was cleansed with chlorhexidine as a cleansing solution. In sterile fashion the pump was accessed with a 22-gauge needle. Approximately 5 mls of the pump solution was removed and discarded appropriately. The pump was then refilled with 20 mL's of Dilaudid 20 mg/mL. The needle was withdrawn and a bandage was placed over the puncture site. The infusion rate was reprogrammed and increased to Dilaudid 4.15 mg/day. The patient tolerated well with no complication. Plan and Disposition:: Patient tolerated his intrathecal refill and reprogram with no complications and was discharged neurologically intact. Patient will return to clinic on or before his next intrathecal refill date of August 29, 2024. We will see the patient back in the clinic at the next intrathecal refill. Patient has been instructed to contact the clinic with any concerns before the next appointment. Dr. Angel has reviewed this note and agrees with this plan of care. This note was dictated using voice recognition software and make contain errors or omissions. -- It Is medically necessary for this patient to continue to have their intrathecal pump refilled at regular intervals. This patient had an intrathecal pain pump implanted after meeting criteria of chronic intractable pain for greater than 3 months and failing conservative treatments. Patient has committed and been compliant to the treatment plan and all planned follow up care. Since implantation of the intrathecal pain pump, the patient has had decreased pain and been more functional. Oral medications have been reduced including intake of oral opioids. Patient continues to do well with intrathecal therapy with decrease in pain symptoms and increase in functional status. Stopping in trathecal medications can lead to life threatening withdrawal, seizures, cardiac arrest, severe pain, and possible . Pumps that are not refilled at regular intervals can be damages and cause and need for replacement. We continually titrate dose and concentration to optimize pain relief and function. We are limited in concentration for certain drugs to safely deliver medications through the pump and stay within the recommendations from the Polyanalges[employer] Consensus Committee Guidelines. Depending on dose and concentration these pumps may need to be refilled sooner than 3 months as we titrate.
[2024-06-12 13:34] VITALS: BP 115/72; PULSE 90; RESP 18; O2SAT 99
== END 2024-06-12 13:42 | disposition home or self-care (01) ==
PROVIDERS: PCP Physician Assistant; Visit Provider Nurse Practitioner Family
DX: M51.16 Intervertebral disc disorders with radiculopathy, lumbar region (principal)
CPT/HCPCS: 62370

== ENCOUNTER 2024-08-21 10:55 | Day surgery (SDC) | payer MEDICAID, SELFPAY ==
[2024-08-21 11:03] VITALS: BP 105/75; PULSE 96; RESP 16; O2SAT 96; BMI 24.4
--- NOTE | 2024-08-21 11:14 | EXP.PAIN.PRO ---
Procedure Date: 08/21/24 Time: 11:27 Anesthesiologist:: Kiki Ervin APRN Complications:: None Pre-procedure Diagnosis:: Degenerative disc disease of lumbar spine with lumbar radiculopathy symptoms, chronic pain syndrome Post-procedure Diagnosis:: Same Indications for Procedure:: Patient is a pleasant 49-year-old male who presents today for intrathecal refill and reprogram. Today he rates his pain a 5 out of 10. He denies any new trauma or injury from her last visit.He is managed with intrathecal Dilaudid 20 mg/mL with a daily dose of 4.15 mg/day.He denies any side effects from this medication. His Bryn has been reviewed and is appropriate. Physical Exam: General: Alert and oriented x3, no acute distress, pleasant and cooperative Lungs: Respirations even and unlabored, symmetrical chest expansion Eyes: PERRL Musculoskeletal: Flexion and extension of lumbar [spine] somewhat guarded secondary to pain, [antalgic gait noted] Neurological: Speech clear, no gross sensory deficit Procedure Details:: Informed consent was obtained and the risk and benefits of the procedure were explained to the patient. The patient had noninvasive monitoring placed including noninvasive blood pressure cuff and pulse oximeter. Patient's pump was interrogated. The area over the pump was cleansed with chlorhexidine as a cleansing solution. In sterile fashion the pump was accessed with a 22-gauge needle. Approximately 5.3 mls of the pump solution was removed and discarded appropriately. The pump was then refilled with 20 mL's of Dilaudid 20 mg/mL. The needle was withdrawn and a bandage was placed over the puncture site. The infusion rate was reprogrammed and increased 15 % to Dilaudid 4.775 mg/day. The patient tolerated well with no complication. Plan and Disposition:: Patient tolerated the procedure well with no complications and was discharged neurologically intact. Patient will return to clinic on or before their next intrathecal refill date. We will see the patient back in the clinic at the next intrathecal refill. Patient has been instructed to contact the clinic with any concerns before the next appointment. Dr. Angel has reviewed this note and agrees with this plan of care. This note was dictated using voice recognition software and make contain errors or omissions. -- It Is medically necessary for this patient to continue to have their intrathecal pump refilled at regular intervals. This patient had an intrathecal pain pump implanted after meeting criteria of chronic intractable pain for greater than 3 months and failing conservative treatments. Patient has committed and been compliant to the treatment plan and all planned follow up care. Since implantation of the intrathecal pain pump, the patient has had decreased pain and been more functional. Oral medications have been reduced including intake of oral opioids. Patient continues to do well with intrathecal therapy with decrease in pain symptoms and increase in functional status. Stopping intrathecal medications can lead to life threatening withdrawal, seizures, cardiac arrest, severe pain, and possible . Pumps that are not refilled at regular intervals can be damages and cause and need for replacement. We continually titrate dose and concentration to optimize pain relief and function. We are limited in concentration for certain drugs to safely deliver medications through the pump and stay within the recommendations from the [employer] Guidelines. Depending on dose and concentration these pumps may need to be refilled sooner than 3 months as we titrate. A UDS is needed to verify patient's compliance with our office pain contract. This is ordered based off specific treatments related to chronic pain with the potential to abuse certain medications.
[2024-08-21 11:20] VITALS: BP 114/83; PULSE 103; RESP 18; O2SAT 98
[2024-08-21 11:22] VITALS: BP 114/83; PULSE 103; RESP 18; O2SAT 98
[2024-08-21 11:35] VITALS: BP 106/73; PULSE 73; RESP 16; O2SAT 98
== END 2024-08-21 11:35 | disposition home or self-care (01) ==
PROVIDERS: Visit Provider Nurse Practitioner Family
DX: M51.16 Intervertebral disc disorders with radiculopathy, lumbar region (principal); G89.4 Chronic pain syndrome
CPT/HCPCS: 62370

== ENCOUNTER 2024-10-23 12:59 | Day surgery (SDC) | payer MEDICAID, SELFPAY ==
[2024-10-23 13:09] VITALS: BP 112/74; PULSE 82; RESP 16; TEMP 36.9; O2SAT 99; BMI 24.4
--- NOTE | 2024-10-23 13:11 | EXP.PAIN.PRO ---
Procedure Date: 10/23/24 Time: 13:21 Anesthesiologist:: Kiki Ervin APRN Complications:: None Pre-procedure Diagnosis:: Degenerative disc disease of lumbar spine with lumbar radiculopathy symptoms Post-procedure Diagnosis:: Same Indications for Procedure:: Patient is a pleasant 49-year-old male who presents today for intrathecal refill and reprogram. Today he rates his pain at a 7 out of 10. He denies any new falls or injuries.Patient is currently managed with Dilaudid 20 mg/mL with a daily dose of 4.775 mg/day. He denies any side effects from this medication. He does state that he really does not feel like it is doing as much. Patient denies needing any additional adjustment today.His Bryn has been reviewed and is appropriate. Physical Exam: General: Alert and oriented x3, no acute distress, pleasant and cooperative Lungs: Respirations even and unlabored, symmetrical chest expansion Eyes: PERRL Musculoskeletal: Flexion and extension of lumbar [spine] somewhat guarded secondary to pain, [antalgic gait noted] Neurological: Speech clear, no gross sensory deficit Procedure Details:: Informed consent was obtained and the risk and benefits of the procedure were explained to the patient. The patient had noninvasive monitoring placed including noninvasive blood pressure cuff and pulse oximeter. Patient's pump was interrogated. The area over the pump was cleansed with chlorhexidine as a cleansing solution. In sterile fashion the pump was accessed with a 22-gauge needle. Approximately 4.8 mls of the pump solution was removed and discarded appropriately. The pump was then refilled with 20 mL's of Dilaudid 20 mg/mL. The needle was withdrawn and a bandage was placed over the puncture site. The infusion rate was reprogrammed and continued at its current dosage. The patient tolerated well with no complication. Plan and Disposition:: Patient tolerated the procedure well with no complications and was discharged neurologically intact. Patient did have a moderate seroma during today's visit. He does get these frequently and denies any issues with them. He did state that occasionally they are bothersome but overall not too bad. Patient was counseled that we did have to go through the seromas to access his pump and that it may drain as the day goes on. Patient acknowledges understanding agrees with this plan of care. Patient will return to clinic on or before their next intrathecal refill date. We will see the patient back in the clinic at the next intrathecal refill. Patient has been instructed to contact the clinic with any concerns before the next appointment. Dr. Angel has reviewed this note and agrees with this plan of care. This note was dictated using voice recognition software and make contain errors or omissions. -- It Is medically necessary for this patient to continue to have their intrathecal pump refilled at regular intervals. This patient had an intrathecal pain pump implanted after meeting criteria of chronic intractable pain for greater than 3 months and failing conservative treatments. Patient has committed and been compliant to the treatment plan and all planned follow up care. Since implantation of the intrathecal pain pump, the patient has had decreased pain and been more functional. Oral medications have been reduced including intake of oral opioids. Patient continues to do well with intrathecal therapy with decrease in pain symptoms and increase in functional status. Stopping intrathecal medications can lead to life threatening withdrawal, seizures, cardiac arrest, severe pain, and possible . Pumps that are not refilled at regular intervals can be damages and cause and need for replacement. We continually titrate dose and concentration to optimize pain relief and function. We are limited in concentration for certain drugs to safely deliver medications through the pump and stay within the recommendations from the Polyanal[employer] Consensus [employer] Guidelines. Depending on dose and concentration these pumps may need to be refilled sooner than 3 months as we titrate. A UDS is needed to verify patient's compliance with our office pain contract. This is ordered based off specific treatments related to chronic pain with the potential to abuse certain medications.
[2024-10-23 13:16] VITALS: BP 114/73; PULSE 70; RESP 18; O2SAT 99
[2024-10-23 13:17] VITALS: BP 114/73; PULSE 70; RESP 18; O2SAT 99
[2024-10-23 13:19] VITALS: BP 113/80; PULSE 80; RESP 16; O2SAT 99
== END 2024-10-23 13:19 | disposition home or self-care (01) ==
PROVIDERS: PCP Physician Assistant; Visit Provider Nurse Practitioner Family
DX: M51.16 Intervertebral disc disorders with radiculopathy, lumbar region (principal)
CPT/HCPCS: 62370

== ENCOUNTER 2024-12-25 13:36 | Day surgery (SDC) | payer MEDICAID, SELFPAY ==
[2024-12-25 13:40] VITALS: BP 110/78; PULSE 84; RESP 16; O2SAT 95; BMI 24.4
--- NOTE | 2024-12-25 13:52 | EXP.HP ---
History of Present Illness *Admission Date: 12/25/24 *Reason for visit:: Intrathecal refill; DDD *History of present illness: Degenerative disc disease [facility] Disclaimer: The information contained in this section may have been updated after the patient was seen, as this information can be updated by other users. Medical History Depression Presence of intrathecal pump Degenerative disc disease Family History Other No significant family history Social History Smoking Status: Current every day smoker alcohol intake: never current occupational status: other Travel in the last 8 weeks?: None Have you lived/traveled outside [place] in past 30 days?: No Contact w/someone who lives/traveled outside [place] past 30 days?: No Exposure to someone with infectious disease in past 14 days?: No Do you have a fever (greater than 100.4 F or 38 C)?: No Have you tested positive for COVID-19?: No Exposed to someone with COVID-19 in past 14 days?: No Do you have a sore throat?: No Do you have a cough?: No Do you have any weakness?: No Do you have any diarrhea?: No Are you experiencing any unusual bleeding?: No Do you have any muscle aches/pain?: No Do you have any abdominal pain?: No Are you experiencing loss of taste or smell?: No Other Medical History Have you received the Flu Vaccine for this season: No Have you received the Pneumonia Vaccine: No Review of Systems Review of Systems Review of systems:: pertinent systems reviewed and negative unless documented below Review of systems (narrative): Review of Systems: General: No recent weight changes, no fever, no sleep disturbances Respiratory: No cough, no shortness of air, no recurring pulmonary infections Cardiovascular/peripheral vascular: No chest pain, no palpitations, no edema, no shortness of breath Gastrointestinal: No new onset incontinence, normal bowel movements reported Genitourinary: No new onset incontinence Musculoskeletal: Chronic back pain Psychiatric: [Normal mood/affect] Neurological: [Denies weakness in extremities], [denies balance issues] Meds Home Medications and Allergies Home Medications ?Medication ?Instructions ?Recorded ?Confirmed ?Type cholecalciferol (vitamin D3) 125 125 mcg PO DAILY 09/09/23 12/25/24 History mcg (5,000 unit) tablet (Vitamin D3) hydromorphone (PF) 4 mg/mL 3.4 mg SQ CONT 09/09/23 12/25/24 History injection syringe (Dilaudid (PF)) paroxetine HCl 20 mg tablet 20 mg PO DAILY 09/09/23 12/25/24 History New Prescriptions to Start Prescriptions: Allergies Allergy/AdvReac Type Severity Reaction Status Date / Time No Known Allergies Allergy Verified 09/09/23 14:48 Exam Data for Last 24 hours Vital signs and Labs for Last 24 Hours: Pulse Resp BP Pulse Ox O2 Del Method 84 16 110/78 95 Room Air 12/25/24 13:40 12/25/24 13:40 12/25/24 13:40 12/25/24 13:40 12/25/24 13:40 I & O for Last 24 hours: Intake & Output 12/22/24 12/23/24 12/24/24 12/25/24 23:59 23:59 23:59 23:59 Weight 180 lb Constitutional Constitutional: no acute distress *Routine HEENT Exam Head: Present normocephalic and atraumatic Eye: Present PERRL ENT: Present mucous membranes moist *Routine Neck Exam Neck: Present supple *Routine Respiratory Exam Respiratory: Present CTA bilaterally *Routine Cardiovascular Exam Cardiovascular: Present RRR *Routine Abdominal Exam Abdominal: Present soft *Routine Rectal Exam Rectal:: deferred *Routine Genitalia Exam Genitalia:: normal male Routine Back/Spine/Pelvis Exam Back/Spine: Present pain with flexion *Routine Skin Exam Skin: Present intact and dry *Routine Neurological Exam Neurological: Present alert and oriented X3 Routine Psychiatric Exam Psychiatric: Present normal affect and normal thought process Assessment and Plan *Assessment and plan (1) Lumbar radiculopathy: Status: Acute Category: Medical Code(s): M54.16 - Radiculopathy, lumbar region (2) Low back pain: Status: Acute Qualifiers: Chronicity: chronic Back pain laterality: bilateral Sciatica presence: without sciatica Qualified Code(s): M54.50 - Low back pain, unspecified; G89.29 - Other chronic pain Category: Medical Code(s): M54.50 - Low back pain, unspecified (3) Chronic pain syndrome: Status: Acute Category: Medical Code(s): G89.4 - Chronic pain syndrome Plan Patient has been instructed to contact the clinic with any concerns before the next appointment. Dr. Angel has reviewed this note and agrees with this plan of care. This note was dictated using voice recognition software and make contain errors or omissions. All injections are used with Lidocaine, Bupivacaine and dexamethasone. Occasionally urine drug screen is needed to verify patient's compliance with our office pain contract. This is ordered based off specific treatments related to chronic pain with the potential to abuse certain medications.
--- NOTE | 2024-12-25 13:54 | P.PCN_ITS ---
Procedure Date: 12/25/24 Time: 14:08 Anesthesiologist:: Kiki Ervin APRN Complications:: None Pre-procedure Diagnosis:: Degenerative disc disease of lumbar spine, chronic pain syndrome Post-procedure Diagnosis:: Same Indications for Procedure:: Patient is a pleasant 49-year-old male who presents today for intrathecal refill and reprogram. Today he rates his pain a 7 out of 10. He denies any new trauma or injury. He does state overall he is still doing well. Patient does feel like some guys his pump is working better than others. Patient has had this pump since around 2017 or 18 he believes. Patient is currently managed with Dilaudid 20 mg/mL with a daily dose of 4.775 mg/day. He denies any side effects. His Bryn has been reviewed and is appropriate. Physical Exam: General: Alert and oriented x3, no acute distress, pleasant and cooperative Lungs: Respirations even and unlabored, symmetrical chest expansion Eyes: PERRL Musculoskeletal: Flexion and extension of lumbar [spine] somewhat guarded secondary to pain, [antalgic gait noted] Neurological: Speech clear, no gross sensory deficit Procedure Details:: Informed consent was obtained and the risk and benefits of the procedure were explained to the patient. The patient had noninvasive monitoring placed including noninvasive blood pressure cuff and pulse oximeter. Patient's pump was interrogated. The area over the pump was cleansed with chlorhexidine as a c leansing solution. In sterile fashion the pump was accessed with a 22-gauge needle. Approximately 4.9 mls of the pump solution was removed and discarded appropriately. The pump was then refilled with 20 mL's of Dilaudid 20 mg/mL. The needle was withdrawn and a bandage was placed over the puncture site. The infusion rate was reprogrammed and continued at its current dosage. The patient tolerated well with no complication. Plan and Disposition:: Patient tolerated the procedure well with no complications and was discharged neurologically intact. I did discuss with the patient due to the fact that his pump is older that there is always the possibility that we need to go ahead and get it replaced that it may not be working as effectively as it could. Patient was counseled that it is completely at his discretion if he would like to proceed forward. Patient states currently he would like to wait. We will continue to monitor this in upcoming appointments. Patient will return to clinic on or before their next intrathecal refill date. We will see the patient back in the clinic at the next intrathecal refill. Patient has been instructed to contact the clinic with any concerns before the next appointment. Dr. Angel has reviewed this note and agrees with this plan of care. This note was dictated using voice recognition software and make contain errors or omissions. -- It Is medically necessary for this patient to continue to have their intrathecal pump refilled at regular intervals. This patient had an intrathecal pain pump implanted after meeting criteria of chronic intractable pain for greater than 3 months and failing conservative treatments. Patient has committed and been compliant to the treatment plan and all planned follow up care. Since implantation of the intrathecal pain pump, the patient has had decreased pain and been more functional. Oral medications have been reduced including intake of oral opioids. Patient continues to do well with intrathecal therapy with decrease in pain symptoms and increase in functional status. Stopping intrathecal medications can lead to life threatening withdrawal, seizures, cardiac arrest, severe pain, and possible . Pumps that are not refilled at regular intervals can be damages and cause and need for replacement. We continually titrate dose and concentration to optimize pain relief and function. We are limited in concentration for certain drugs to safely deliver medications through the pump and stay within the recommendations from the Polyanalges[employer] Consensus Committee Guidelines. Depending on dose and concentration these pumps may need to be refilled sooner than 3 months as we titrate. A UDS is needed to verify patient's compliance with our office pain contract. This is ordered based off specific treatments related to chronic pain with the potential to abuse certain medications.
[2024-12-25 14:06] VITALS: BP 107/75; PULSE 82; RESP 18; O2SAT 97
[2024-12-25 14:18] VITALS: BP 102/69; PULSE 80; RESP 16; O2SAT 96
== END 2024-12-25 14:18 | disposition home or self-care (01) ==
PROVIDERS: PCP Physician Assistant; Visit Provider Nurse Practitioner Family
DX: Z45.1 Encounter for adjustment and management of infusion pump (principal); M51.16 Intervertebral disc disorders with radiculopathy, lumbar region; G89.4 Chronic pain syndrome; F32.A Depression, unspecified; F17.200 Nicotine dependence, unspecified, uncomplicated; Z79.899 Other long term (current) drug therapy; Z79.891 Long term (current) use of opiate analgesic
CPT/HCPCS: 62370

== ENCOUNTER 2025-02-19 11:37 | Day surgery (SDC) | payer MEDICAID, SELFPAY ==
--- NOTE | 2025-02-19 11:41 | EXP.PM.HP ---
History of Present Illness *Admission Date: 02/19/25 *Reason for visit:: Intrathecal refill; DDD *History of present illness: Same [facility] Disclaimer: The information contained in this section may have been updated after the patient was seen, as this information can be updated by other users. Medical History Depression Presence of intrathecal pump Degenerative disc disease Family History Other No significant family history Social History Smoking Status: Current every day smoker alcohol intake: never current occupational status: other Travel in the last 8 weeks?: None Have you lived/traveled outside US in past 30 days?: No Contact w/someone who lives/traveled outside [place] past 30 days?: No Exposure to someone with infectious disease in past 14 days?: No Do you have a fever (greater than 100.4 F or 38 C)?: No Have you tested positive for COVID-19?: No Exposed to someone with COVID-19 in past 14 days?: No Do you have a sore throat?: No Do you have a cough?: No Do you have any weakness?: No Do you have any diarrhea?: No Are you experiencing any unusual bleeding?: No Do you have any muscle aches/pain?: No Do you have any abdominal pain?: No Are you experiencing loss of taste or smell?: No Other Medical History Have you received the Flu Vaccine for this season: No Have you received the Pneumonia Vaccine: No Review of Systems Review of Systems Review of systems:: pertinent systems reviewed and negative unless documented below Review of systems (narrative): Review of Systems: General: No recent weight changes, no fever, no sleep disturbances Respiratory: No cough, no shortness of air, no recurring pulmonary infections Cardiovascular/peripheral vascular: No chest pain, no palpitations, no edema, no shortness of breath Gastrointestinal: No new onset incontinence, normal bowel movements reported Genitourinary: No new onset incontinence Musculoskeletal: Chronic back pain Psychiatric: [Normal mood/affect] Neurological: [Denies weakness in extremities], [denies balance issues] Meds Home Medications and Allergies Home Medications ?Medication ?Instructions ?Recorded ?Confirmed ?Type cholecalciferol (vitamin D3) 125 125 mcg PO DAILY 09/09/23 12/25/24 History mcg (5,000 unit) tablet (Vitamin D3) hydromorphone (PF) 4 mg/mL 3.4 mg SQ CONT 09/09/23 12/25/24 History injection syringe (Dilaudid (PF)) paroxetine HCl 20 mg tablet 20 mg PO DAILY 09/09/23 12/25/24 History New Prescriptions to Start Prescriptions: Allergies Allergy/AdvReac Type Severity Reaction Status Date / Time No Known Allergies Allergy Verified 09/09/23 14:48 Exam Constitutional Constitutional: no acute distress *Routine HEENT Exam Head: Present normocephalic and atraumatic Eye: Present PERRL ENT: Present mucous membranes moist *Routine Neck Exam Neck: Present supple *Routine Respiratory Exam Respiratory: Present CTA bilaterally *Routine Cardiovascular Exam Cardiovascular: Present RRR *Routine Abdominal Exam Abdominal: Present soft *Routine Rectal Exam Rectal:: deferred *Routine Genitalia Exam Genitalia:: deferred Routine Back/Spine/Pelvis Exam Back/Spine: Present pain with flexion *Routine Skin Exam Skin: Present intact, dry and warm *Routine Neurological Exam Neurological: Present alert and oriented X3 Routine Psychiatric Exam Psychiatric: Present normal affect and normal thought process Assessment and Plan *Assessment and plan (1) Chronic pain syndrome: Status: Acute Category: Medical Code(s): G89.4 - Chronic pain syndrome (2) Low back pain: Status: Acute Qualifiers: Chronicity: chronic Back pain laterality: bilateral Sciatica presence: without sciatica Qualified Code(s): M54.50 - Low back pain, unspecified; G89.29 - Other chronic pain Category: Medical Code(s): M54.50 - Low back pain, unspecified (3) Lumbar radiculopathy: Status: Acute Category: Medical Code(s): M54.16 - Radiculopathy, lumbar region
--- NOTE | 2025-02-19 11:43 | EXP.PAIN.PRO ---
Procedure Date: 02/19/25 Time: 11:59 Anesthesiologist:: Kiki Ervin APRN Complications:: None Pre-procedure Diagnosis:: Degenerative disc disease of lumbar spine with lumbar radiculopathy symptoms, chronic pain syndrome Post-procedure Diagnosis:: Same Indications for Procedure:: Patient is a pleasant 50-year-old male who presents today for intrathecal refill and reprogram. He rates his pain today a 7 out of 10. Patient denies any new falls or injuries. He is currently managed with Dilaudid 20 mg/mL with a daily dose of 4.775 mg/day. He denies any side effects. His Bryn has been reviewed and is appropriate. Physical Exam: General: Alert and oriented x3, no acute distress, pleasant and cooperative Lungs: Respirations even and unlabored, symmetrical chest expansion Eyes: PERRL Musculoskeletal: Flexion and extension of lumbar [spine] somewhat guarded secondary to pain, [antalgic gait noted] Neurological: Speech clear, no gross sensory deficit Procedure Details:: Informed consent was obtained and the risk and benefits of the procedure were explained to the patient. The patient had noninvasive monitoring placed including noninvasive blood pressure cuff and pulse oximeter. Patient's pump was interrogated. The area over the pump was cleansed with chlorhexidine as a cleansing solution. In sterile fashion the pump was accessed with a 22-gauge needle. Approximately 6.3 mls of the pump solution was removed and discarded appropriately. The pump was then refilled with 20 mL's of Dilaudid 20 mg/mL. The needle was withdrawn and a bandage was placed over the puncture site. The infusion rate was reprogrammed and continued at its current dosage. The patient tolerated well with no complication. Plan and Disposition:: Patient tolerated the procedure well with no complications and was discharged neurologically intact. Patient will return to clinic on or before their next intrathecal refill date. We will see the patient back in the clinic at the next intrathecal refill. Patient has been instructed to contact the clinic with any concerns before the next appointment. Dr. Angel has reviewed this note and agrees with this plan of care. This note was dictated using voice recognition software and make contain errors or omissions. -- It Is medically necessary for this patient to continue to have their intrathecal pump refilled at regular intervals. This patient had an intrathecal pain pump implanted after meeting criteria of chronic intractable pain for greater than 3 months and failing conservative treatments. Patient has committed and been compliant to the treatment plan and all planned follow up care. Since implantation of the intrathecal pain pump, the patient has had decreased pain and been more functional. Oral medications have been reduced including intake of oral opioids. Patient continues to do well with intrathecal therapy with decrease in pain symptoms and increase in functional status. Stopping intrathecal medications can lead to life threatening withdrawal, seizures, cardiac arrest, severe pain, and possible . Pumps that are not refilled at regular intervals can be damages and cause and need for replacement. We continually titrate dose and concentration to optimize pain relief and function. We are limited in concentration for certain drugs to safely deliver medications through the pump and stay within the recommendations from the [employer] Consensus [employer] Guidelines. Depending on dose and concentration these pumps may need to be refilled sooner than 3 months as we titrate. A UDS is needed to verify patient's compliance with our office pain contract. This is ordered based off specific treatments related to chronic pain with the potential to abuse certain medications.
[2025-02-19 11:50] VITALS: BP 123/75; PULSE 77; RESP 18; O2SAT 100; BMI 25.0
[2025-02-19 11:58] VITALS: BP 101/71; PULSE 74; RESP 18; O2SAT 96
[2025-02-19 12:07] VITALS: BP 103/69; PULSE 74; RESP 18; O2SAT 98
== END 2025-02-19 12:07 | disposition home or self-care (01) ==
PROVIDERS: PCP Physician Assistant; Visit Provider Nurse Practitioner Family
DX: Z45.1 Encounter for adjustment and management of infusion pump (principal); M51.16 Intervertebral disc disorders with radiculopathy, lumbar region; G89.4 Chronic pain syndrome; M54.50 Low back pain, unspecified; F32.A Depression, unspecified; F17.200 Nicotine dependence, unspecified, uncomplicated; Z79.899 Other long term (current) drug therapy
CPT/HCPCS: 62370